=== PATIENT | male | born 1995 | race Caucasian/White ===

== ENCOUNTER 2025-01-21 13:01 | Emergency (ER) | payer BC, SELFPAY ==
[2025-01-21 13:09] VITALS: BP 147/80; PULSE 84; RESP 16; TEMP 36.8; O2SAT 98
--- NOTE | 2025-01-21 15:13 | CTR_ITS ---
PROCEDURE INFORMATION: Exam: CT Pelvis With Contrast Exam date and time: 01/21/2025 3:26 PM Age: 29 years old Clinical indication: Pelvic pain and other: Perianal abscess TECHNIQUE: Imaging protocol: Computed tomography of the pelvis with contrast. Radiation optimization: All CT scans at this facility use at least one of these dose optimization techniques: automated exposure control; mA and/or kV adjustment per patient size (includes targeted exams where dose is matched to clinical indication); or iterative reconstruction. Contrast material: OMNI 350; Contrast volume: 100 ml; Contrast route: INTRAVENOUS (IV); COMPARISON: No relevant prior studies available. RADIATION DOSE METRICS: Total DLP (mGy-cm): 554.7 FINDINGS: Intestine: No obstruction within the field of view. Appendix: No evidence of appendicitis. Intraperitoneal space: Unremarkable. No free air. No significant fluid collection. Lymph nodes: Unremarkable. No enlarged lymph nodes. Reproductive: Prostate is borderline enlarged. Urinary bladder: Normal. No mass. Bones/joints: Unremarkable. No acute fracture. No dislocation. Soft tissues: Complex fluid collection with a thick rim in the subcutaneous soft tissues posterior to the coccyx and along the intergluteal cleft measuring 2.8 x 2.4 x 2.7 cm with surrounding fat stranding. Difficult to assess if there is a tract between the anus/rectum and this collection. CT/CT pelvis w con* [id number] IMPRESSION: 2.8 cm abscess along the intergluteal cleft posterior to the coccyx.
--- NOTE | 2025-01-21 15:15 | W.ED.SKABFB ---
HPI - Skin/Abscess/Foreign Bdy General: Chief complaint: Skin/Abscess/Foreign Body Stated complaint: knots on bottom, pain Time Seen by Provider: 01/21/25 15:03 History of Present Illness: Patient is 29-year-old male without prior medical history that reports to ED with worsening pain to his buttocks and folds bilateral proximal/superior buttocks for the last 3 days. Patient noted he did have small areas prior to the pain approximately 2 months, that were not worsening in nature until the last 3 days. Now he feels as if he cannot sit on his butt at all. He has never had this before. No fevers. Associated symptoms: Deny chills, fever(s), nausea or vomiting Related Data Previous Rx's ?Medication ?Instructions ?Recorded doxycycline hyclate 100 mg capsule 100 mg PO BID 10 days #20 caps 01/21/25 Allergies Allergy/AdvReac Type Severity Reaction Status Date / Time codeine Allergy Unknown Verified 01/21/25 13:13 Review of Systems General: Reports: 10 or more systems reviewed and unremarkable except in HPI and below Const: Denies: fever(s) or chills ENMT: Denies: throat pain or mouth pain Card: Denies: chest pain or palpitations Resp: Denies: dyspnea or non-productive cough GI: Reports: abdominal pain (posterior buttocks); Denies: nausea or vomiting : Denies: difficulty urinating, dysuria, penile discharge or testicular pain Musc: Denies: neck pain, back pain or extremity pain Skin/Breast: Reports: new lesions Neuro: Denies: headache(s), numbness in extremities or weakness in extremities Psych: Denies: anxiety or depression Physical Exam Const: COMMON NORMALS: patient oriented x3 HENMT: COMMON NORMALS: normocephalic and atraumatic HEAD & SCALP: normocephalic and atraumatic Lymph: LYMPHATIC: no lymphadenopathy noted Resp: COMMON NORMALS: normal respiratory effort, No retractions and clear to auscultation bilaterally AUSCULTATION: clear to auscultation bilaterally GI: COMMON NORMALS: Normal to inspection, nondistended, normoactive bowel sounds present, Soft to palpation and non-tender PALPATION: Yes Soft to palpation Back/Pelvis: BACK IMAGE (MALE):  1. induration, minimal whiteness 2. induration, pain 3. induration, pain Extremity: COMMON NORMALS: normal to inspection, full ROM and capillary refill normal Neuro: COMMON NORMALS: patient oriented x3 and CN's II-XII intact bilaterally Psych: COMMON NORMALS: mental status grossly normal and Normal thought process present THOUGHT PROCESS: Normal thought process present Skin: COMMON NORMALS: no rashes or lesions noted and no wounds GENERAL SKIN EXAM: no rashes or lesions noted Procedures Abscess I/D Site: lalitha-rectal (gluteal fold) Sedation/analgesia: other (morphine) Local Anesthetic: lidocaine 1% and with epi Amount of anesthesia used (mL): 4 Technique: incised with #11 blade Amount of fluid expressed (mL): 50 Irrigation: Yes Packing used?: plain Complications: pain Course Vital Signs: Vital signs: Vital Signs Temperature 98.3 F 01/21/25 13:09 Pulse Rate 63 01/21/25 18:23 Respiratory Rate 16 01/21/25 13:09 Blood Pressure 146/103 01/21/25 18:23 Pulse Oximetry 100 01/21/25 18:23 Oxygen Delivery Me thod Room Air 01/21/25 13:09 MDM - Skin/Abscess/Foreign Bdy Medicial Decision Making Patient is 29-year-old male with significant induration to buttocks fold superiorly, with minimal whiteness with induration in the superior fold. There are 3 areas of induration and pain. Only one of them has minimal whiteness. Given his history, he will need a CT of his pelvis to further discern this association of induration, and any concern for dano's gangrene given location, induration, and most likely inability to incise and drain this area by current appearance. Will obtain CBC/CMP/CRP for discernment as well. Medical Records I reviewed the patient's medical records. Lab Data I reviewed the patient's lab results. 01/21/25 15:42 01/21/25 15:[address] 01/21/25 15:13 IMPRESSION: 2.8 cm abscess along the intergluteal cleft posterior to the coccyx. Laboratory Results WBC 10.18 10^3/uL (3.29-11.43) 01/21/25 15:42 RBC 4.79 10^6/uL (3.85-5.65) 01/21/25 15:42 Hgb 14.40 g/dL (11.27-16.99) 01/21/25 15:42 Hct 41.6 % (37-53) 01/21/25 15:42 MCV 86.8 fl (82-101) 01/21/25 15:42 MCH 30.1 pg (27-33) 01/21/25 15:42 MCHC 34.6 g/dL (30-55) 01/21/25 15:42 RDW 12.4 % (12.1-15.1) 01/21/25 15:42 Plt Count 288 10^3/cmm (157-399) 01/21/25 15:42 MPV 8.9 fL (7.4-10.4) 01/21/25 15:42 Neut % (Auto) 65.3 % 01/21/25 15:42 Lymph % (Auto) 21.2 % 01/21/25 15:42 Morrison % (Auto) 9.8 % 01/21/25 15:42 Eos % (Auto) 1.8 % 01/21/25 15:42 Baso % (Auto) 0.7 % 01/21/25 15:42 Neut # (Auto) 6.65 10^3/uL (1.8-7.7) 01/21/25 15:42 Lymph # (Auto) 2.2 10^3/uL (0.8-4.8) 01/21/25 15:42 Morrison # (Auto) 1.0 10^3/uL (0.2-0.9) H 01/21/25 15:42 Eos # (Auto) 0.2 10^3/uL (0.0-0.8) 01/21/25 15:42 Baso # (Auto) 0.1 10^3/uL (0.0-0.1) 01/21/25 15:42 Nucleated RBC % (auto) 0 % 01/21/25 15:42 Nucleated RBCs # 0.0 /100WBC 01/21/25 15:42 Sodium 133 mmol/L (136-145) L 01/21/25 15:42 Potassium 3.6 mmol/L (3.5-5.1) 01/21/25 15:42 Chloride 97 mmol/L (98-107) L 01/21/25 15:42 Carbon Dioxide 22 mmol/L (22-29) 01/21/25 15:42 Anion Gap 17.6 (5-19) 01/21/25 15:42 BUN 9 mg/dL (6-20) 01/21/25 15:42 Creatinine 0.8 mg/dL (0.7-1.2) 01/21/25 15:42 GFR Calculation 113.5 mL/min (90-130) 01/21/25 15:42 Glucose 77 mg/dL (65-115) 01/21/25 15:42 Calculated Osmolality 273 mOsm/kg (285-295) L 01/21/25 15:42 Calcium 8.9 mg/dL (8.5-10.5) 01/21/25 15:42 Total Bilirubin 0.8 mg/dL (0.15-1.2) 01/21/25 15:42 AST 18 U/L (0-40) 01/21/25 15:42 ALT 19 U/L (0-41) 01/21/25 15:42 Alkaline Phosphatase 48 U/L (40-130) 01/21/25 15:42 C-Reactive Protein 9.5 mg/L (0.0-4.9) H 01/21/25 15:42 Total Protein 7.2 g/dL (6.6-8.7) 01/21/25 15:42 Albumin 4.2 g/dL (3.5-5.2) 01/21/25 15:42 Globulin 3.0 g/dL (1.3-4.6) 01/21/25 15:42 All radiology interpretation(s) finalized by discharge ED provider radiology interpretation(s): 2.5 cm abscess Discharge Plan Discharge Patient Disposition: Home Clinical Impression: Abscess of skin or subcutaneous tissue Qualifiers: Site of cutaneous abscess: buttock Qualified Code(s): L02.31 - Cutaneous abscess of buttock Condition: Stable Prescriptions: New doxycycline hyclate 100 mg capsule 100 mg PO BID 10 Days Qty: 20 0RF Discharge Orders: Discharge ED (Routine); Ordered 01/21/25 Ordered By: Coral Og Patient Instructions: Abscess (ED), Opioid Safety, Patient Portal & [facility]ek Instructions Activity Restrictions/Additional Instructions: Call wound care in a.m. for follow-up. Case management has a referral for follow-up. This will need to be repacked in 24 hours. If wound care is unable to do this tomorrow, return to ED for repacking and reevaluation Continue your antibiotics as prescribed. Add probiotic or active culture yogurt to avoid infectious diarrhea Return to ED for worsening pain, redness, fever greater than 100.4 ?F Tylenol and ibuprofen together every 4-6 hours for pain. You have been given [place] x 1 that you may utilize 1/2-1 tonight for pain. Typically after the pressure is released pain is controlled. Print Language: Burkinan Coding Level of Care Code ED Passenger Barge Master for Tiera Quiñonez
[2025-01-21] MEDS: iohexol 350 mg/mL 500 mL Btl (per mL) IV (15:27)
[2025-01-21] MEDS: orphenadrine 30 mg/mL Inj 2 mL 60 MG IVP (15:37)
[2025-01-21 15:48] LABS: Hematocrit 41.6 % (37-53); Hemoglobin 14.40 g/dL (11.27-16.99); Mean Corpuscular HGB Conc 34.6 g/dL (30-55); Mean Corpuscular Hemoglobin 30.1 pg (27-33); Mean Corpuscular Volume 86.8 fl (82-101); Nucleated Red Blood Cells % 0 %; Platelet Count 288 10^3/cmm (157-399); Red Blood Count 4.79 10^6/uL (3.85-5.65); White Blood Count 10.18 10^3/uL (3.29-11.43)
[2025-01-21 16:09] LABS: Alanine Aminotransferase 19 U/L (0-41); Albumin Level 4.2 g/dL (3.5-5.2); Alkaline Phosphatase 48 U/L (40-130); Anion Gap 17.6 (5-19); Aspartate Amino Transferase 18 U/L (0-40); Blood Urea Nitrogen 9 mg/dL (6-20); Calcium 8.9 mg/dL (8.5-10.5); Carbon Dioxide 22 mmol/L (22-29); Chloride 97 mmol/L (98-107); Globulin 3.0 g/dL (1.3-4.6); Glucose 77 mg/dL (65-115); Osmolality Calculated 273 mOsm/kg (285-295); Potassium 3.6 mmol/L (3.5-5.1); Sodium 133 mmol/L (136-145); Total Protein 7.2 g/dL (6.6-8.7)
[2025-01-21 16:30] VITALS: O2SAT 99
[2025-01-21] MEDS: ondansetron 2 mg/ML SDV 2 mL 4 MG IVP (16:43)
[2025-01-21] MEDS: morphine 4 mg/mL SDV 1 mL 8 MG IVP (16:43)
[2025-01-21] MEDS: HYDROcodone-acetaminophen 10-325 mg Tablet 1 TAB PO (18:03)
[2025-01-21 18:23] VITALS: BP 146/103; PULSE 63; O2SAT 100
--- NOTE | 2025-01-24 14:29 | PC.NURSE ---
Wound care referral sent.
== END 2025-01-21 18:26 | disposition home or self-care (01) ==
PROVIDERS: Emergency Provider Physician Assistant
DX: L02.31 Cutaneous abscess of buttock (principal)
CPT/HCPCS: 10060; 72193; 80053; 85025; 86140; 87070; 87075; 87077; 87186; 87205; 96374; 96375; 99285; J1885; J2270; J2360; J2405; J9999